=== PATIENT | male | born 1985 | race Caucasian/White ===

== ENCOUNTER 2018-11-09 09:36 | Emergency (ER) ==
[2018-11-09 09:51] VITALS: BMI 19.1
--- NOTE | 2018-11-09 09:53 | ED.PDOC ---
General ED Provider: Dr. OLVIN RAO Chief Complaint: Respiratory Complaint Stated Complaint: Flu like sx for week and a half; cough, aches all over, diarrhea and sore throat. Time Seen by Physician: 09:53 Mode of Arrival: Walk-In Information Source: Patient Primary Care Provider: KEILY POLK Nursing and Triage Documentation Reviewed and Agree: Yes Does patient meet sepsis criteria?: Yes If yes, has appropriate treatment been initiated?: Yes System Inflammatory Response Syndrome: Temp 101F or Greater, Resp >20/Minute Sepsis Protocol: For patient's 13 years and over: Temp is 96.8 and below OR 101 and greater Pulse >90 BPM Resp >20/minute Acutely Altered Mental Status Are patient's symptoms suggestive of a new infection, such as: -Pneumonia -Skin, Soft Tissue -Endocarditis -UTI -Bone, Joint Infection -Implantable Device -Acute Abdominal Infection -Wound Infection -Meningitis -Blood Stream Catheter Infection -Unknown Review of Systems - Review Of Systems Constitutional: Reports: Chills, Fever, Malaise Ears, Nose, Mouth, Throat: Reports: Nose discharge (Sniffles) Respiratory: Reports: Cough (occasional; non productive per patient). Denies: Short of air, Stridor, Wheezing Cardiac: Reports: No symptoms GI: Reports: Diarrhea : Reports: No symptoms Musculoskeletal: Reports: Other (Aches all over) Skin: Reports: No symptoms All Other Systems: Reviewed and Negative Past Medical History - Past Medical History Endocrine: Reports: None Cardiovascular: Reports: None Respiratory: Reports: None Hematological: Reports: None Gastrointestinal: Reports: None Genitourinary: Reports: None Neuro/Psych: Reports: None Musculoskeletal: Reports: Other (diffuse aches and pains all over) Cancer: Reports: None - Surgical History General Surgical History: Reports: None - Family History Family History: Reports: Unknown - Social History Smoking Status: Current some day smoker, Light tobacco smoker Hx Substance Use: No Alcohol Screening: None Physical Exam - Physical Exam Appearance: Ill-appearing Ill-appearing: Moderate Pain Distress: None Eyes: YANIQUE, EOMI, Conjunctiva clear ENT: Nose normal (patent; no purulent drainage), Oropharynx normal Neck: Supple Respiratory: Airway patent, Breath sounds clear, Respirations nonlabored Cardiovascular: RRR, Pulses normal GI/: Soft, Nontender Musculoskeletal: Normal strength, ROM intact Skin: Warm, Dry, Normal color Neurological: Sensation intact, Motor intact, Alert, Oriented Psychiatric: Affect appropriate, Mood appropriate Interpretation - Radiology Interpretation Radiology Interpretation By: ED Physician (Apparent complete consolidation RUL; rad reading pending) Radiology Results: Positive (RUL dense consolidation; CT with recommended) Exam Interpreted: CXR Radiology Interpretation By: Radiologist Exam Interpreted: CT Scan (with contrast; RUL pneumonia - dense consolidation - lymphadenopathy R and L) Critical Care Note - Critical Care Note Total Time (mins): 40 Comments: Sepsis prot; fever, elevated WBC; Pneumonia on XRay and CT, discussion with primary care; prior hx ID concerns; transfer for [facility] care capabilities incl ID with IV abx Course - Course Hematology/Chemistry: 11/09/18 10:03 11/09/18 10:03 Orders, Labs, Meds: Lab Review 11/09/18 11/09/18 11/09/18 09:55 10:03 10:03 WBC 33.26 H RBC 3.28 L Hgb 11.0 L Hct 30.5 L MCV 93.0 MCH 33.5 H MCHC 36.1 H RDW Coeff of Danae 14.6 Plt Count 499 H Neutrophils % (Manual) 90.0 H Band Neutrophils % 3.0 Lymphocytes % (Manual) 4.0 L Metamyelocytes % 2.0 Reactive Lymphocytes 1.0 Anisocytosis Not present Sodium 135.3 Potassium 3.43 L Chloride 98.5 Carbon Dioxide 27.7 Anion Gap 12.53 BUN 17.6 Creatinine 0.63 Estimated GFR (MDRD) 149.00 BUN/Creatinine Ratio 27.93 Glucose 109.4 H Lactic Acid Calcium 7.61 L Total Bilirubin 0.92 AST 28.2 ALT 22.1 Alkaline Phosphatase 85.8 Total Protein 6.06 L Albumin 3.47 L Globulin 2.59 Albumin/Globulin Ratio 1.33 Procalcitonin Urine Color Urine Clarity Urine pH Ur Specific [place] Urine Protein Urine Glucose (UA) Urine Ketones Urine Blood Urine Nitrite Urine Bilirubin Urine Urobilinogen Ur Leukocyte Esterase Urine Microscopic RBC Urine Microscopic WBC Ur Squamous Epith Cells Influ A Molecular Assay Negative by naat Influ B Molecular Assay Negative by naat 11/09/18 11/09/18 11/09/18 10:03 10:35 11:32 WBC RBC Hgb Hct MCV MCH MCHC RDW Coeff of Danae Plt Count Neutrophils % (Manual) Band Neutrophils % Lymphocytes % (Manual) Metamyelocytes % Reactive Lymphocytes Anisocytosis Sodium Potassium Chloride Carbon Dioxide Anion Gap BUN Creatinine Estimated GFR (MDRD) BUN/Creatinine Ratio Glucose Lactic Acid 1.05 Calcium Total Bilirubin AST ALT Alkaline Phosphatase Total Protein Albumin Globulin Albumin/Globulin Ratio Procalcitonin 9.48 Urine Color Yellow Urine Clarity Clear Urine pH 7.0 Ur Specific [place] 1.015 Urine Protein 3+ Urine Glucose (UA) Negative Urine Ketones Negative Urine Blood 2+ Urine Nitrite Negative Urine Bilirubin Negative Urine Urobilinogen >=8.0 Ur Leukocyte Esterase Negative Urine Microscopic RBC 5-10 Urine Microscopic WBC 2-5 Ur Squamous Epith Cells 2-5 Influ A Molecular Assay Influ B Molecular Assay Orders Category Date Time Status NPO REMINDER: IMAGING ONCE CARE 11/09/18 10:40 Completed ED APPLY O2 .ONCE EMERGENCY 11/09/18 10:25 Active ED URGENT CARE APPLIED .ONCE EMERGENCY 11/09/18 10:25 Active ED VITAL SIGNS Q1HR EMERGENCY 11/09/18 10:25 Active BLOOD CULTURE (ED ONLY) Stat LAB 11/09/18 Ordered CBC W/ AUTO DIFF Stat LAB 11/09/18 10:03 Completed COMPREHENSIVE METABOLIC PANEL Stat LAB 11/09/18 10:03 Completed FLU A & B MOLECULAR [FLU A/B MOLECULAR] Stat LAB 11/09/18 09:55 Completed LACTIC ACID Stat LAB 11/09/18 10:35 Completed MANUAL DIFFERENTIAL Stat LAB 11/09/18 10:03 Completed PROCALCITONIN Stat LAB 11/09/18 10:03 Completed RAPID STREP SCREEN [MOLECULAR GROUP A STREP] Stat LAB 11/09/18 09:55 Completed URINALYSIS C & S IF INDICATED Stat LAB 11/09/18 11:32 Completed Acetaminophen [Tylenol] MEDS 11/09/18 10:53 Discontinued 1,000 mg PO ONCE STA Ceftriaxone Sodium [Rocephin] MEDS 11/09/18 11:00 Discontinued 1 gm .ROUTE .STK-MED ONE Ceftriaxone Sodium [Rocephin] 1 gm MEDS 11/09/18 10:56 Discontinued 0.9 % Sodium Chloride [Sodium Chloride] 50 ml IV ONCE Sodium Chloride 0.9% [Sodium Chloride] 1,000 ml MEDS 11/09/18 09:57 Discontinued IV BOLUS Tetracaine HCl/Pf [Tetracaine 0.5% Unit-Dose] MEDS 11/09/18 12:56 Discontinued 2 drop OP ONCE STA Vancomycin HCl [Vancomycin] 1 gm MEDS 11/09/18 11:46 Discontinued 0.9 % Sodium Chloride [Sodium Chloride] 250 ml IV ONCE CHEST, 2 VIEWS PA & LAT Stat RADS 11/09/18 09:[address] CHEST W/CONTRAST Stat RADS 11/09/18 10:36 Completed Medications Discontinued Medications Generic Name Dose Route Start Last Admin Trade Name Fabienq PRN Reason Stop Dose Admin Acetaminophen 1,000 mg 11/09/18 10:53 11/09/18 11:12 Tylenol PO 11/09/18 10:54 1,000 mg ONCE STA Administration Sodium Chloride 1,000 mls @ 1,000 mls/hr 11/09/18 09:57 11/09/18 10:43 Sodium Chloride IV 11/09/18 10:56 1,000 mls/hr BOLUS STA Administration Ceftriaxone Sodium 1 gm/ 50 mls @ 75 mls/hr 11/09/18 10:56 11/09/18 11:11 Sodium Chloride IV 11/09/18 11:35 75 mls/hr ONCE STA Administration Vancomycin HCl 1 gm/ Sodium 250 mls @ 250 mls/hr 11/09/18 11:46 11/09/18 11: 58 Chloride IV 11/09/18 12:45 250 mls/hr ONCE STA Administration Tetracaine HCl 2 drop 11/09/18 12:56 11/09/18 12:58 Tetracaine 0.5% Unit-Dose OP 11/09/18 12:57 Not Given ONCE STA Vital Signs: Temp Pulse Resp BP Pulse Ox 11/09/18 11:40 102.7 F H 11/09/18 09:37 102.1 F H 109 H 20 104/66 94 L Departure - Departure Time of Disposition: 12:00 Disposition: TSF SHORT-TRM HOSP Discharge Problem: Pneumonia Qualifiers: Pneumonia type: due to unspecified organism Laterality: right Lung location: upper lobe of lung Qualified Code(s): J18.1 - Lobar pneumonia, unspecified organism Sepsis Qualifiers: Sepsis type: sepsis due to unspecified organism Qualified Code(s): A41.9 - Sepsis, unspecified organism Condition: Stable Pt referred to PMD for follow-up: Yes (Follow up with primary care after [facility]) IPMP verified?: Yes (Not applicable) Allergies/Adverse Reactions: Allergies No Known Allergies Allergy (Verified 11/09/18 09:47) Home Medications: Ambulatory Orders 1 [No Reported Medications] 11/09/18
[2018-11-09] MEDS ORDERED: SODIUM CHLORIDE 1,000 ML IV STA (09:57)
--- NOTE | 2018-11-09 10:24 | DI ---
EXAM: Chest two views HISTORY: Cough COMPARISON: 12/06/2007 TECHNIQUE: Two views of the chest were performed FINDINGS: Dense consolidation in the right upper lobe. Right perihilar prominence. There is no ple ural effusion or pneumothorax. The heart is normal in size. The mediastinal contour is normal. The re are no acute abnormalities of the bones. IMPRESSION: Unexpected finding: Dense consolidation in the right upper lobe most likely represents pneumonia, though there is right perihilar prominence that could represent lymphadenopathy and/or mas s. Correlation with CT chest with contrast recommended
[2018-11-09] MEDS ORDERED: ROCEPHIN IV STA (10:25)
[2018-11-09] MEDS ORDERED: TYLENOL PO STA (10:53)
[2018-11-09] MEDS ORDERED: ROCEPHIN 1 GM in SODIUM CHLORIDE 50 ML IV STA (10:56)
[2018-11-09] MEDS ORDERED: ROCEPHIN ONE (11:00)
--- NOTE | 2018-11-09 11:32 | CT ---
Exam: CT chest with contrast. HISTORY: Right upper lung consolidation. Cough and congestion. Prior splenectomy. Procedures: Contiguous axial images were obtained through the chest following intravenous administra tion of contrast. Multiplanar reformatted images were also created and reviewed. Comparison: Chest x-ray two-view 11/09/2018. Findings: There is left axillary lymphadenopathy measuring up to 16 mm x 25 mm. Pretracheal lymphad enopathy measures up to 10 mm x 17 mm. There is a right subcarinal lymphadenopathy measuring up to 1 0 mm short axis. Right hilar lymphadenopathy measures approximately 12 mm x 33 mm. There is no russel cardial effusion. Limited visualization of the upper abdominal soft tissues demonstrates changes of prior splenectomy. Lung windows demonstrate dense consolidation in the posterior and inferior aspect of the right upper lobe. There is moderate patchy opacification in the right lower lobe with mild o pacity scattered throughout the left lung. The trachea and mainstem bronchi appear patent. Bone windows demonstrate no evidence of acute fracture. Impressions: Dense consolidation in the inferior and posterior right upper lobe. Patchy areas of peribronchovascu lar opacity in the right lower lobe and to a lesser extent throughout the left lung. The appearance suggests pneumonia. Lymphadenopathy in the right hilum and throughout the mediastinum as well as left axillary lymphadeno [place]. This may be reactive secondary to pneumonia, however correlation with clinical presentation a nd follow-up after appropriate therapy is needed to confirm resolution and exclude a more aggressive process. Findings were faxed to the emergency department at 11:15 a.m.
[2018-11-09 11:40] VITALS: TEMP 102.7
[2018-11-09] MEDS ORDERED: VANCOMYCIN 1 GM in SODIUM CHLORIDE 250 ML IV STA (11:46)
[2018-11-09] MEDS ORDERED: TETRACAINE 0.5% UNIT-DOSE OP STA (12:56)
[2018-11-09 13:00] VITALS: BP 104/53
== END 2018-11-09 12:45 | disposition short-term general hospital (02) ==
LOC: ED 09:36
DX: J18.1 Lobar pneumonia, unspecified organism (principal); A41.9 Sepsis, unspecified organism; F17.210 Nicotine dependence, cigarettes, uncomplicated; R53.1 Weakness; R06.02 Shortness of breath; R00.0 Tachycardia, unspecified; R50.9 Fever, unspecified
CPT/HCPCS: 36415; 80053; 81001; 83605; 84145; 85007; 85025; 87040; 87070; 87186; 87502; 87651; 96361; 96365; 96367; 99285